=== PATIENT | male | born 1995 | race American Indian/Alaskan Native ===

== ENCOUNTER 2019-05-05 03:10 | Emergency (ER) | payer BC ==
[2019-05-05 03:24] VITALS: BP 137/67
--- NOTE | 2019-05-05 04:41 | XRay Report ---
XR hand 3+V RT INDICATION / CLINICAL INFORMATION: Right ring finger pain. COMPARISON: None available. FINDINGS: BONES/JOINT(S): No acute fracture or subluxation. No significant degenerative changes. SOFT TISSUES: No significant abnormality. ADDITIONAL FINDINGS: None. Signer Name: Gerber Ordoñez MD Signed: 05/05/2019 4:36 AM Workstation Name: [id number]
--- NOTE | 2019-05-05 05:02 | Emergency Department Report ---
ED Lower Extremity HPI - General Chief Complaint: Extremity Problem,Nontraumatic Stated Complaint: LEFT FOOT PAIN Time Seen by Provider: 05/05/19 04:25 Source: patient Mode of arrival: Ambulatory Limitations: No Limitations - History of Present Illness Initial Comments: 24-year-old -[place] male presents to the emergency room complaining of left foot and ankle pain. Patient states he was playing flag football last night approximately 10 PM when he stepped down and heard something pop on his left foot. Patient reports his unable to bear weight on left foot. Patient reports a past medical history of asthma takes albuterol when necessary. Patient has an allergy to Dimetapp. Complaint: ankle injury -: During the night Time: 00:00 Injury: Ankle: Left Type of Injury: inversion Place: street/outdoors Severity scale (0 -10): 7 Improves With: immobilization Worsens With: weight bearing, movement, palpation Context: running Associated Symptoms: snap/pop sensation, swelling, tingling, unable to bear weight - Related Data Previous Rx's Medication Instructions Recorded Last Taken Type Ibuprofen [Motrin 600 MG tab] 600 mg PO Q8H PRN #30 tablet 05/05/19 Unknown Rx Allergies Allergy/AdvReac Type Severity Reaction Status Date / Time dextromethorphan Allergy Hives Verified 05/05/19 03:46 [From Dimetapp Cold-Congestion] diphenhydramine Allergy Hives Verified 05/05/19 03:46 [From Dimetapp Cold-Congestion] guaifenesin Allergy Hives Verified 05/05/19 03:46 [From Dimetapp Cold-Congestion] phenylephrine Allergy Hives Verified 05/05/19 03:46 [From Dimetapp Cold-Congestion] pseudoephedrine Allergy Hives Verified 05/05/19 03:46 [From Dimetapp Cold-Congestion] ED Review of Systems ROS: Stated complaint: LEFT FOOT PAIN Other details as noted in HPI Comment: All other systems reviewed and negative ED Past Medical Hx - Past Medical History Previous Medical History?: Yes Hx Asthma: Yes - Surgical History Past Surgical History?: No - Social History Smoking Status: Never Smoker Substance Use Type: None - Medications Home Medications: Home Medications Medication Instructions Recorded Confirmed Last Taken Type Ibuprofen [Motrin 600 MG tab] 600 mg PO Q8H PRN #30 tablet 05/05/19 Unknown Rx ED Physical Exam - General Limitations: No Limitations General appearance: alert, in no apparent distress - Head Head exam: Present: atraumatic, normocephalic - Eye Eye exam: Present: normal appearance - ENT ENT exam: Present: mucous membranes moist - Expanded Lower Extremity Exam Left Ankle exam: Present: normal inspection, full ROM. Absent: tenderness, swelling Foot/Toe exam: Present: full ROM, tenderness (lateral malleolus), swelling (lateral malleolus) Neuro vascular tendon exam: Present: no vascular compromise ED Course Vital Signs 05/05/19 03:23 Temperature 98.2 F Pulse Rate 73 Respiratory 16 Rate Blood Pressure 137/67 O2 Sat by Pulse 98 Oximetry ED Lower Extremity MDM - Radiology Data Radiology results: report reviewed Patient: OLMAN JENKINS MR#: [id number] : 1995 Acct:[id number] Age/Sex: 24 / M ADM Date: 05/05/19 Loc: ED Attending Dr: Ordering Physician: NUBIA ALVARENGA MD Date of Service: 05/05/19 Procedure(s): XR hand 3+V RT Accession Number(s): [id number] cc: NUBIA ALVARENGA MD Fluoro Time In Minutes: XR hand 3+V RT INDICATION / CLINICAL INFORMATION: Right ring finger pain. COMPARISON: None available. FINDINGS: BONES/JOINT(S): No acute fracture or subluxation. No significant degenerative changes. SOFT TISSUES: No significant abnormality. ADDITIONAL FINDINGS: None. Signer Name: Gerber Ordoñez MD Signed: 05/05/2019 4:36 AM Workstation Name: [id number] Transcribed By: FUENTES Dictated By: Gerber Ordoñez MD Electronically Authenticated By: Gerber Ordoñez MD Signed Date/Time: 05/05/19435 DD/ 5 TD/TT: Critical care attestation.: If time is entered above; I have spent that time in minutes in the direct care of this critically ill patient, excluding procedure time. ED Disposition Clinical Impression: Moderate left ankle sprain Qualifiers: Encounter type: initial encounter Qualified Code(s): S93.402A - Sprain of unspecified ligament of left ankle, initial encounter Disposition: - TO HOME OR SELFCARE Is pt being admited?: No Does the pt Need Aspirin: No Condition: Stable Instructions: Ankle Stirrup Splint (ED), Ankle Sprain (ED), Finger Sprain (ED) Prescriptions: Ibuprofen [Motrin 600 MG tab] 600 mg PO Q8H PRN #30 tablet PRN Reason: Pain Referrals: [facility] [Primary Care Provider] - 3-5 Days JUAN M PAZ MD [Staff Physician] - 3-5 Days Forms: Work/School Release Form(ED), Accompanied Note
--- NOTE | 2019-05-05 05:59 | XRay Report ---
XR foot 3+V LT INDICATION / CLINICAL INFORMATION: left foot pain. COMPARISON: None available. FINDINGS: BONES/JOINT(S): No acute fracture or subluxation. No significant degenerative changes. SOFT TISSUES: No significant abnormality. ADDITIONAL FINDINGS: None. Signer Name: Gerber Ordoñez MD Signed: 05/05/2019 5:54 AM Workstation Name: [id number]
[2019-05-05] MEDS ORDERED: IBUPROFEN 600 MG TAB PO ONE ×2 (06:17→06:20)
== END 2019-05-05 06:30 | disposition home or self-care (01) ==
LOC: ED 03:10
DX: S93.402A Sprain of unspecified ligament of left ankle, initial encounter (principal); M79.641 Pain in right hand; J45.909 Unspecified asthma, uncomplicated; Z79.1 Long term (current) use of non-steroidal anti-inflammatories (NSAID); Z88.8 Allergy status to other drugs, medicaments and biological substances; W21.01XA Struck by football, initial encounter; Y93.61 Activity, american tackle football; Y92.488 Other paved roadways as the place of occurrence of the external cause; Y99.8 Other external cause status